=== PATIENT | male | born 1995 | race African-American/Black ===

== ENCOUNTER 2020-08-11 12:32 | Emergency (ER) | payer OTHER ==
[2020-08-11] MEDS ORDERED: MORPHINE SULFATE 10 MG/ML INJ IM ONE (12:54)
[2020-08-11] MEDS ORDERED: ONDANSETRON 4 MG TAB.RAPDIS PO ONE (12:54)
[2020-08-11] MEDS ORDERED: DIPH/PERTUSS(ACELL)/TETANUS VAC/PF 0.5 ML SYR (>=10YO) IM ONE (12:57)
[2020-08-11] MEDS ORDERED: CEFTRIAXONE 1 GM/D5W RTU 1 GM/50 ML RTUPB IV ONE (13:07)
[2020-08-11] MEDS ORDERED: SULFAMETHOXAZOLE/TRIMETHOPRIM 800-160 MG TABLET PO ONE (13:08)
--- NOTE | 2020-08-11 13:08 | ER Document Report ---
ED Medical Screen (RME) - General Chief Complaint: Thumb Injury Stated Complaint: THUMB INJURY Time Seen by Provider: 08/11/20 12:50 Primary Care Provider: [facility] [Provider Group] - Follow up as needed [facility] [Provider Group] - Follow up as needed [facility] [Provider Group] - Follow up as needed LOCALMD,NO [Primary Care Provider] - Follow up as needed GILLIAN LUIS MD [ACTIVE STAFF] - Follow up as needed Mode of Arrival: Wheelchair Information source: Patient Notes: 24-year-old male presented to ED for avulsion injury including nail to the left thumb. He states he was at work when he cut his thumb in a machine. He did cut the end off of this thumb to include the nail. I did speak with his mother who stated his immunizations are not up-to-date. She states she is not allergic to anything. He denies any past medical or surgical history. He states he does drink alcohol about once a month and does smoke marijuana but does not smoke any cigarettes. He states this happened about 1145 today. He is alert oriented respirations regular nonlabored speaking in full sentences. Pain is a 4 out of 5 throbbing sharp Constitutional: Negative for fever. HENT: Negative for sore throat. Eyes: Negative for visual changes. Cardiovascular: Negative for chest pain. Respiratory: Negative for shortness of breath. Gastrointestinal: Negative for abdominal pain, vomiting or diarrhea. Genitourinary: Negative for dysuria. Musculoskeletal: Avulsion to the end of the thumb Skin: Avulsion to the end of the left thumb the nail Neurological: Negative for headaches, weakness or numbness. 10 point ROS negative except as marked above and in HPI. PHYSICAL EXAMINATION: GENERAL: Well-appearing, well-nourished and in no acute distress. HEAD: Atraumatic, normocephalic. EYES: Pupils equal round extraocular movements intact, conjunctiva are normal. ENT: Nares patent NECK: Normal range of motion LUNGS: No respiratory distress Musculoskeletal: Normal range of motion NEUROLOGICAL: Normal speech, normal gait. PSYCH: Normal mood, normal affect. SKIN: Avulsion injury to the end of the thumb to include the nail part of bone visual - HPI Onset: Just prior to arrival Onset/Duration: Sudden Quality of pain: Sharp, Throbbing Severity: Severe Pain Level: 5 Associated Symptoms: Other - Avulsion to the end of the left thumb to include the nail Exacerbated by: Movement Relieved by: Denies Similar symptoms previously: No Recently seen / treated by doctor: No - Related Data Smoking: Non-smoker Frequency of alcohol use: Occasional Drug Abuse: Marijuana Allergies/Adverse Reactions: No Known Allergies Allergy (Verified 08/11/20 12:45) Past Medical History - General Information source: Patient - Social History Cigarette use (# per day): No Frequency of alcohol use: Occasional Drug Abuse: Marijuana Family history: Reviewed & Not Pertinent - Past Medical History Cardiac Medical History: Reports: None Pulmonary Medical History: Reports: None EENT Medical History: Reports: None Neurological Medical History: Reports: None Endocrine Medical History: Reports: None Renal/ Medical History: Reports: None Malignancy Medical History: Reports None GI Medical History: Reports: None Musculoskeltal Medical History: Reports None Skin Medical History: Reports None Psychiatric Medical History: Reports: None Traumatic Medical History: Reports: None Infectious Medical History: Reports: None Surgical Hx: Negative Past Surgical History: Reports: None - Immunizations Immunizations up to date: Yes Hx Diphtheria, Pertussis, Tetanus Vaccination: Yes - 08/11/20 Physical Exam - Vital signs Vitals: Temp Pulse Resp BP Pulse Ox 98.1 F 75 16 151/93 H 100 08/11/20 12:42 08/11/20 12:42 08/11/20 12:42 08/11/20 12:42 08/11/20 12:42 Course - Re-evaluation Re-evalutation: 08/12/20 00:[address] Luis concerning the visible bone with the avulsion to the end of the thumb with no nail present. He recommended Xeroform gauze and thick bulky dressing. X-ray did not show a fracture but the bone is exposed. Was cleaned well rinsed well bacitracin and Xeroform gauze applied then Telfa then a bulky gauze dressing. He was started on Keflex and Bactrim and given a shot of Rocephin in the emergency room. Patient was discharged home with prescriptions and instructions to follow-up with Dr. Luis. - Vital Signs Vital signs: Temp Pulse Resp BP Pulse Ox 98.1 F 75 16 151/93 H 100 08/11/20 12:42 08/11/20 12:42 08/11/20 12:42 08/11/20 12:42 08/11/20 12:42 - Diagnostic Test Radiology reviewed: Image reviewed, Reports reviewed Doctor's Discharge - Discharge Clinical Impression: Avulsion injury left thumb Condition: Stable Disposition: HOME, SELF-CARE Additional Instructions: Avulsion Injury You have an avulsion injury -- a loss of skin which can't be helped by suturing. When large, these injuries can require skin grafting. Smaller defects or shallow avulsions usually heal well with dressings. This injury exposes a small place of the bone so it Injury you will need to follow-up with orthopedics with this injury. Keep the dressing clean and dry. If the dressing becomes saturated please change the dressing otherwise leave the dressing intact and follow-up with orthopedic as soon as possible. If your appointment is for more than 2 days you will need to change the dressing. Complete healing may take anywhere from 10 days to two months. The healing time depends on the size and depth of the avulsion and on the amount of crushing of underlying tissues. Re-examination by the physician is often necessary. If any signs of infection occur (swelling, redness, increasing tenderness, red streaks, profuse purulent drainage from the avulsion, tender lumps in the armpit or groin above the avulsion, or fever), see your doctor immediately. Rocephin You have been given an injection of an antibiotic called Rocephin (ceftriaxone). Sometimes the injection must be combined with antibiotic pills. For some infections, such as an uncomplicated ear infection, Rocephin provides all the antibiotic that's needed. The antibiotic will be in your body for about two days. For serious infections, we usually repeat doses of Rocephin daily. Side effects are very unusual following a shot. Women may develop vaginal yeast infections, and babies can get yeast (thrush) in the mouth following the use of antibiotics. Contact your physician if you have symptoms with this medication. Allergy to this antibiotic can result in hives, wheezing, faintness, or itching. If symptoms of allergy occur, call the doctor at once. Cephalexin The antibiotic you've been prescribed is a member of the cephalosporin class. This type of antibiotic covers a wide variety of infections, including those of the skin, lungs, and urinary tract. It's useful for staph infections. This antibiotic is slightly similar to the penicillin family. In rare cases, a person who is allergic to penicillin will also be allergic to this medication. If you have had a severe allergic reaction to penicillin, and have not taken this antibiotic since that time, notify your doctor. Antibiotics which cover many germs ("broad spectrum" antibiotics) are more likely to cause diarrhea or "yeast" infections. Women prone to vaginal yeast problems may suffer an attack after taking this antibiotic. In infants, oral thrush (white spots "stuck" on the cheek) or yeast diaper rash may result. See your doctor if these problems occur. Call at once if you develop itching, hives, shortness of breath, or lightheadedness. TRIMETHOPRIM-SULFA: You have been given a prescription for trimethoprim-sulfa (TMS, Septra, Bactrim). This is a combination antibiotic of the sulfa class, often used for urinary tract infections, middle ear infections, bronchitis, shigella intestinal infection, and Pneumocystis pneumonia. TMS is usually well-tolerated. Occasional side effects include nausea and decreased appetite. Septra is not recommended for infants less than two months of age. Do not take this medication if you have experienced severe side effects or allergy to sulfa medicine. You should stop this medicine at once and contact your physician if you develop any rash, joint pain, shortness of breath, bruising, or jaundice (yellow color in the skin), or if you develop any other new or unusual symptoms. Oral Narcotic Medication You have been given a [place] dispense pack for pain control. This medication is a narcotic. It's best taken with food, as nausea can result if taken on an empty stomach. Don't operate machinery or drive within six hours of taking this medicatio n. Do not combine this medicine with alcohol, or with any medication which can cause sedation (such as cold tablets or sleeping pills) unless you get permission from the physician. Narcotics tend to cause constipation. If possible, drink plenty of fluids and eat a diet high in fiber and fruits. FOLLOW-UP CARE: Most simple abscesses will not require a follow up visit. If you had packing placed in the abscess, remove it as instructed by the physician. If you have been referred to a physician for follow-up care, call the physicians office for an appointment as you were instructed or within the next two days. If you experience worsening or a significant change in your symptoms, return to the Emergency Department at any time for re-evaluation. Prescriptions: Sulfamethoxazole/Trimethoprim [Bactrim Ds Tablet] 1 each PO BID #20 tablet Cephalexin Monohydrate [Keflex 500 mg Capsule] 500 mg PO QID #20 capsule Forms: Special Work Note, Smoking Cessation Education Referrals: RACHEL,NO [Primary Care Provider] - Follow up as needed GILLIAN LUIS MD [ACTIVE STAFF] - Follow up as needed [facility] [Provider Group] - Follow up as needed [facility] [Provider [facility]] - Follow up as needed [facility] [Provider [facility]] - Follow up as needed
[2020-08-11] MEDS ORDERED: HYDROCODONE/ACETAMINOPHEN 5-325 MG (6 TAB/ER DISP) PO PRN (13:48)
--- NOTE | 2020-08-11 13:48 | RADIOLOGY REPORT (SQ) ---
EXAM DESCRIPTION: FINGER LEFT IMAGES COMPLETED DATE/TIME: 08/11/2020 1:25 pm REASON FOR STUDY: left thumb avulsion COMPARISON: None. NUMBER OF VIEWS: Three views. TECHNIQUE: AP, lateral, and oblique images acquired of the left thumb. LIMITATIONS: None. FINDINGS: MINERALIZATION: Normal. BONES: No acute fracture or dislocation. No worrisome bone lesions. SOFT TISSUES: No soft tissue swelling. No foreign body. OTHER: There is a bandage on the thumb. IMPRESSION: No acute osseous findings. TECHNICAL DOCUMENTATION: JOB ID: [id number] 2010 [employer]- All Rights Reserved Reading location - IP/workstation name: [email or web address]
[2020-08-12 00:22] VITALS: BP 151/93
== END 2020-08-11 14:27 | disposition home or self-care (01) ==
LOC: ER 12:32
DX: S61.102A Unspecified open wound of left thumb with damage to nail, initial encounter (principal); W23.0XXA Caught, crushed, jammed, or pinched between moving objects, initial encounter; Y93.89 Activity, other specified; Y99.0 Civilian activity done for income or pay; Z23 Encounter for immunization; F12.10 Cannabis abuse, uncomplicated
CPT/HCPCS: 99284; 96372; 96375; 96365; 73140; 90715; S0119; J2270; J0696